=== PATIENT | male | born 2000 | race Caucasian/White ===

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

== ENCOUNTER 2018-01-05 20:25 | Emergency (ER) | payer BC ==
[2018-01-05 21:28] VITALS: BP 136/62
--- NOTE | 2018-01-05 22:31 | UC ---
Laceration HPI - HPI Summary HPI Summary: 17 y/o male with no medical history s/p baseball to lip at 5PM, + bleeding, + laceration, up to date on tetanus, denies head ijury , LOC, loose teeth, no other complaints, no bleeding disorders, healing issues - History Of Current Complaint Hx Obtained From: Patient Laceration Location: Cheek - upper lip Mechanism Of Injury: Blunt Trauma Onset/Duration: Sudden Onset Severity: Moderate Pain Intensity: 2 Pain Scale Used: 0-10 Numeric <Missy Moura - Last Filed: 01/05/18 22:27> <Shirley Mike - Last Filed: 01/06/18 11:39> - History Of Current Complaint Chief Complaint: UCTrauma Stated Complaint: LIP INJURY Time Seen by Provider: 01/05/18 22:02 - Allergies/Home Medications Allergies/Adverse Reactions: Allergies Allergy/AdvReac Type Severity Reaction Status Date / Time MS Ceftriaxone Allergy Hives Verified 01/05/18 21:28 [From Rocephin] MS Cefuroxime [From Ceftin] Allergy Hives Verified 01/05/18 21:28 PMH/Surg Hx/FS Hx/Imm Hx Previously Healthy: Yes - Surgical History Surgical History: Yes Surgery Procedure, Year, and Place: tubes. R knee. Tonsilectomy - Family History Known Family History: Positive: Hypertension - Social History Alcohol Use: Occasionally Substance Use Type: None Smoking Status (MU): Never Smoked Tobacco - Immunization History Vaccination Up to Date: Yes <Missy Moura - Last Filed: 01/05/18 22:27> Review of Systems Skin: Bruising - upper lip, l, Other - lac inner lip L Is Patient Immunocompromised?: No All Other Systems Reviewed And Are Negative: Yes <Missy Moura - Last Filed: 01/05/18 22:27> Physical Exam Triage Information Reviewed: Yes Appearance: Well-Appearing, No Pain Distress, Well-Nourished Vital Signs: Initial Vital Signs Temp 98.2 F 01/05/18 21:24 Pulse 57 01/05/18 21:24 Resp 20 01/05/18 21:24 BP 136/62 01/05/18 21:24 Pulse Ox 100 01/05/18 21:24 Vital Signs Reviewed: Yes Eyes: Positive: Conjunctiva Clear Dental: Positive: Other: - laceration L upper lip on mucous, mucous pink, ~ 3mm deep, 1cm length, minimal tender. no active bleeding noted.. Negative: Percussion Tenderness @, Gross Decay/Caries @, Dental Fracture @, Cellulitis @, Cervical Lymphadenopathy <MartellMissy - Last Filed: 01/05/18 22:27> Vital Signs: Initial Vital Signs Temp 98.2 F 01/05/18 21:24 Pulse 57 01/05/18 21:24 Resp 20 01/05/18 21:24 BP 136/62 01/05/18 21:24 Pulse Ox 100 01/05/18 21:24 <Shirley Mike - Last Filed: 01/06/18 11:39> Laceration Course/Dx - Course/Dx Course Of Treatment: discussed with Kim Mike, no repair needed continue to monitor motrin/ tyelnol for pain, symptoms, monitor for infection - Differential Dx - Laceration/Wound Differental Diagnoses: Abscess, Bite Injury, Cellulitis Provider Diagnoses: laceration, left upper lip <Missy Moura - Last Filed: 01/05/18 22:27> Discharge <Missy Moura - Last Filed: 01/05/18 22:27> <Shirley Mike - Last Filed: 01/06/18 11:39> - Discharge Plan Condition: Good Disposition: HOME Patient Education Materials: Laceration (ED) Referrals: No Primary Care Phys,NOPCP [Primary Care Provider] - Additional Instructions: - mucous membrane laceration- will heal on own, watch for increased pain, drainage- return to ER for possible infection - Tylenol/ motrin for pain Attestation Statement User Type: Provider - I was available for consult. This patient was seen by the advanced practice provider. The patient was seen by - recommend no sutures based on location and depth. frenulum intact. no dental injuries, d/w wound care , ice, vasoline coating. Pt comfortable and in agreement with plan. Daphne <Shirley Mike - Last Filed: 01/06/18 11:39>
== END 2018-01-05 22:26 | disposition home or self-care (01) ==
LOC: UCCORT 20:25
DX: S01.511A Laceration without foreign body of lip, initial encounter (principal); X58.XXXA Exposure to other specified factors, initial encounter; Y93.67 Activity, basketball; Y92.9 Unspecified place or not applicable
CPT/HCPCS: 99211; G0463

== ENCOUNTER 2018-07-22 10:56 | Emergency (ER) | payer BC ==
--- NOTE | 2018-07-22 12:00 | UC ---
HPI Febrile Illness - HPI Summary HPI Summary: 18-year-old male with a history of Crohn's disease that is managed on Remicade presents with an onset of fever yesterday around 1600 as high as 101 F associated with some sore throat, mild nasal congestion, low back pain, nausea, and vomiting 3. Denies ear pain or drainage, chest pain, shortness of breath, cough, dysuria, frequency, urgency, hematuria, abdominal pain, diarrhea, blood in stool, or melena. No recent travel out of the country, consumption of raw or undercooked meat or seafood, recent antibiotic use, or sick contact. - History of Current Complaint Chief Complaint: UCGeneralIllness Time Seen by Provider: 07/22/18 11:33 Hx Obtained From: Patient Onset/Duration: Started Hours Ago, Still Present Timing: Constant Initial Severity: Mild Current Severity: Mild Pain Intensity: 4 Aggravating Factors: Nothing Alleviating Factors: Nothing Associated Signs and Symptoms: Nausea, Sore Throat, Vomiting, Other: - Low back pain - Allergy/Home Medications Allergies/Adverse Reactions: Allergies Allergy/AdvReac Type Severity Reaction Status Date / Time ceftriaxone Allergy Hives Verified 07/22/18 11:38 cefuroxime Allergy Hives Verified 07/22/18 11:38 Home Medications: Home Medications Ibuprofen TAB* [Advil TAB*] 800 mg PO Q6H PRN 07/22/18 [History Confirmed ] guaiFENesin [Mucinex] 600 mg PO ONCE 07/22/18 [History Confirmed 07/22/18] PMH/Surg Hx/FS Hx/Imm Hx Previously Healthy: Yes Other GI/ History: Crohn's disease - Surgical History Surgical History: Yes Surgery Procedure, Year, and Place: tubes. R knee. L knee ACL repair. Tonsilectomy - Family History Known Family History: Positive: Hypertension - Social History Occupation: Student Lives: Dormitory/Roommates Alcohol Use: Occasionally Substance Use Type: Marijuana Substance Use Comment - Amount & Last Used: social Smoking Status (MU): Never Smoked Tobacco - Immunization History Vaccination Up to Date: Yes Review of Systems Constitutional: Fever, Chills, Fatigue Skin: Negative Eyes: Negative ENT: Sore Throat, Nasal Discharge Respiratory: Negative Cardiovascular: Negative Gastrointestinal: Vomiting, Nausea Genitourinary: Negative Is Patient Immunocompromised?: Yes - on DMARD for Crohn's disease All Other Systems Reviewed And Are Negative: Yes Physical Exam Triage Information Reviewed: Yes Appearance: Well-Appearing, No Pain Distress, Well-Nourished Vital Signs: Initial Vital Signs Temp 100.9 F 07/22/18 11:34 Pulse 85 07/22/18 11:34 Resp 14 07/22/18 11:34 BP 141/73 07/22/18 11:34 Pulse Ox 100 07/22/18 11:34 Vital Signs Reviewed: Yes Eyes: Positive: Conjunctiva Clear. Negative: Discharge ENT: Positive: Pharynx normal - Tonsils surgically absent., Nasal congestion, TMs normal, Uvula midline. Negative: Nasal drainage, Trismus, Muffled voice, Hoarse voice, Sinus tenderness Neck: Positive: Supple, Nontender, No Lymphadenopathy Respiratory: Positive: Lungs clear, Normal breath sounds, No respiratory distress Cardiovascular: Positive: RRR, No Murmur Abdomen Description: Positive: Nontender, No Organomegaly, Soft. Negative: CVA Tenderness (R), CVA Tenderness (L) Bowel Sounds: Positive: Present Musculoskeletal: Positive: Other: - Mild paraspinous low back tenderness without spasm. Neurological Exam: Normal Skin Exam: Normal Diagnostics - Laboratory Diagnostic Studies Completed/Ordered: POC Urinalysis 1+ ketones, trace blood - Radiology No standard instances Xray Interpretation: Positive (See Comments) Radiology Interpretation Completed By: Radiologist - No evidence of renal calculi or hydronephrosis. Small amount of free intraperitoneal fluid in the dependent pelvis noted. Uncertain etiology. Re-Evaluation - Re-Evaluation First Eval Re-Evaluation Time: 13:21 Comment: Patient has received ketoralac, ondansetron, and approximately 500 ml IVF. Report nausea improved but low back pain has worsened. Nursing reports Temp 101 F. Mother at bedside. She reports patient was born with hydronephrosis and followed by nephrology up until school age. Will obtain CT abd/pelv w/o contrast to evaluate for renal stone since pain is worsening. Second Eval Re-Evaluation Time: 14:20 Change: Improved Comment: Patient states feeling better. Afebrile. VSS. Does continue to have some mild low back pain however improved. Discussed CT results with patient and mother. Offerred further evaluation in the ED since there was the finding of free intraperitoneal fluid in the dependent pelvis of unknown etiology however patient states he would prefer to go home with the understanding that he should be immediately evaluated in the ED for any new or worsening symptoms. Course/Dx - Course Course Of Treatment: 18-year-old male with a history of Crohn's disease managed on Remicade presents with an onset of fever yesterday of 101 F associated with some sore throat, mild nasal congestion, low back pain, nausea, and vomiting 3. History and initial exam were unremarkable except for an elevated temp and mild lower back pain. UA was obtained showing 1+ ketones and trace blood. Patient was given IV fluids, ketoralac and ondansetron. There was a mild increased in temp and the patient reported an increase in back pain so a non- contrasted CT abd/pelv was performed. CT was negative for renal calculi or hydronephrosis. There was small amount of free intraperitoneal fluid of undertermined origin in the dependent pelvis however no other acute patholgy noted. The case was reviewed with Dr. Campuzano and CT results reviewed with Dr. Mcdaniels. Patient was re-evaluated after CT and results were reviewed. Patient stated that after receiving a full liter of he was feeling better, pain decreased. Afebrile. VSS. After detailed discussion with patient and family, he elects for watchful waiting and close follow up with PCP. Warning symptoms requiring immediate follow up in ED were reveiwed. Patient verbalized uunderstanding and agrees with POC. - Febrile Illness Differential Diagnoses: Abd. Infection, Fever of Unknown Origin, GI Disease - Crohn's, Pyelonephritis, Other: - renal calculi - Diagnoses Clinic Provider Diagnoses: Gastroenteritis Discharge - Sign-Out/Discharge Documenting (check all that apply): Patient Departure All imaging exams completed and their final reports reviewed: Yes - Discharge Plan Condition: Stable Disposition: HOME Patient Education Materials: Gastroenteritis (ED) Referrals: Jewell Zendejas MD [Primary Care Provider] - As Soon As Possible (For recheck and follow up.) Additional Instructions: Your CT scan today showed no evidence of kidney stone or hydronephrosis. There was a small amount of fluid present in the pelvis which is not normally seen in male patients. I do not have a good explanation for this finding. Your fever was resolved, symptoms were improved, and vital signs were stable at the time of discharge. Be sure to push lots of fluids to stay well hydrated. Call your primary care provider tomorrow to make an appointment for next available appointment to follow up on the trace blood in your urine and CT findings. Go immediately to the emergency room if you have persistent fever greater than 100.5 despite taking acetaminophen (Tylenol) or ibuprofen (Advil, Motrin), have any worsening of your pain, start vomiting again, or have any worsening of symptoms. - Billing Disposition and Condition Condition: STABLE Disposition: Home
[2018-07-22] MEDS: NS 0.9% 1000 ML* 1,000 ML IV ONE (12:43)
[2018-07-22] MEDS: Ketorolac INJ* 30 MG/ML 1 ML VIAL IV PUSH ONE (12:57)
[2018-07-22] MEDS: Ondansetron INJ* 2 MG/ML VIAL IV ONE (13:01)
--- NOTE | 2018-07-22 14:00 | RAD ---
INDICATION: Fever, low back pain, vomiting rule out renal calculus. COMPARISON: There are no relevant prior studies available for comparison. TECHNIQUE: A CT scan of the abdomen and pelvis was performed without intravenous and without oral contrast. Contiguous axial sections were obtained from the lung bases through the symphysis pubis. Images were reconstructed in the coronal and sagittal planes. FINDINGS: LUNGS: There is mild dependent bilateral lower lobe subsegmental atelectasis. No pleural effusion is present. LIVER: The liver is normal in size. No focal abnormality is seen on this noncontrast study. GALLBLADDER: No calcified gallstones are seen. BILE DUCTS: No intra or extrahepatic ductal distention is seen. SPLEEN: The spleen is normal in size without significant focal abnormality. PANCREAS: The pancreas is normal in size. No ductal distention or calcifications are seen. ADRENAL GLANDS: The adrenal glands are normal in size. KIDNEYS: The kidneys are normal in size. No renal calculi or hydronephrosis is seen. No ureteral calculi are seen. AORTA: The aorta is normal in caliber without significant calcific plaque. LYMPH NODES: No significantly enlarged lymph nodes are seen. BOWEL: The stomach, small and large bowel appear nondistended. The appendix appears to be within normal limits. There are scattered diverticuli within the colon. There is no evidence for diverticulitis or colitis. PELVIC ORGANS: No bladder wall thickening is seen. No bladder calculi are seen. PERITONEUM: There is a small amount of free intraperitoneal fluid present in the dependent pelvis which is abnormal in a male patient. No free intraperitoneal air is seen. BONES: No significant focal osseous abnormality is seen. IMPRESSION: 1. SMALL AMOUNT OF FREE INTRAPERITONEAL FLUID IN THE PELVIS. 2. NO RENAL CALCULI OR EVIDENCE FOR HYDRONEPHROSIS.
[2018-07-22 14:13] VITALS: BP 139/65
== END 2018-07-22 14:47 | disposition home or self-care (01) ==
LOC: UCCORT 10:56
DX: K50.90 Crohn's disease, unspecified, without complications (principal); Z88.1 Allergy status to other antibiotic agents; K52.9 Noninfective gastroenteritis and colitis, unspecified
CPT/HCPCS: 74176; 81003; 87651; 96361; 96374; 96375; 99212; G0463; J1885; J2405